=== PATIENT | female | born 1980 | race Two or more races ===

== ENCOUNTER 2020-06-06 01:27 | Emergency (ER) | payer MEDICAID ==
[~2020-06-06] VITALS: Ht 157.5 cm; Wt 70.3 kg
[~2020-06-06 01:27] MED LIST: PRENATAL VITS
[2020-06-06 03:29] VITALS: BP 120/76
== END 2020-06-06 05:55 | disposition home or self-care (01) ==
LOC: ER 01:27
DX: J01.00 Acute maxillary sinusitis, unspecified (principal)
CPT/HCPCS: 71045

== ENCOUNTER 2020-06-13 07:02 | Emergency (ER) | payer MEDICAID ==
[~2020-06-13] VITALS: Ht 157.5 cm; Wt 70.3 kg
[2020-06-13 07:31] VITALS: BP 113/81
[2020-06-13 08:05] LABS: Basophils # (auto) 0 10 ^3/uL (0-0.2); Eosinophils # (auto) 0 10 ^3/uL (0-0.8); Hemoglobin 10.1 g/dL (12.2-16.2); Mean Corpuscular Volume 68.8 fL (80.0-100.0); Monocytes # (auto) 0.3 10 ^3/uL (0-1.3); Red Cell Distribution Width 19.5 % (11.8-14.3)
[2020-06-13 08:09] LABS: Basophils % (auto) 0.2 % (0.0-2.0); Hematocrit 32.2 % (36.0-46.0); Lymphocytes # (auto) 1.2 10 ^3/uL (0.4-5.4); Lymphocytes % (auto) 17.9 % (10.0-50.0); Mean Corpuscular Hemoglobin 21.6 pg (28.0-32.0); Mean Corpuscular Hgb Conc. 31.4 g/dL (32.0-36.0); Monocytes % (auto) 4.2 % (0.0-12.0); Neutrophils # (auto) 5.2 10 ^3/uL (1.6-8.6); Neutrophils % (auto) 77.7 % (37.0-80.0); Platelet Count (auto) 331 10^3/uL (140-450); Red Blood Cells 4.69 10^6/uL (4.0-5.20); White Blood Cell 6.7 10^3/uL (4.4-10.8)
[2020-06-13 08:23] LABS: Albumin 3.5 g/dL (3.4-5.0); Calcium 8.2 mg/dL (8.5-10.1); Potassium 4.1 mmol/L (3.5-5.1)
[2020-06-13 08:26] LABS: BUN/Creatinine Ratio 17.1; Bilirubin, Total 0.3 mg/dL (0.2-1.0); CRP High Sensitivity 0.03 mg/dL (< 0.3); Total Protein 7.5 g/dL (6.4-8.2)
== END 2020-06-13 09:32 | disposition home or self-care (01) ==
LOC: ER 07:02
DX: U07.1 COVID-19 (principal); R19.7 Diarrhea, unspecified
CPT/HCPCS: 36415; 71045; 80053; 82728; 83615; 85025; 85379; 86141

== ENCOUNTER 2020-06-17 13:59 | Emergency (ER) | payer MEDICAID ==
[~2020-06-17] VITALS: Ht 157.5 cm; Wt 70.3 kg
[2020-06-17 14:23] VITALS: BP 119/77
== END 2020-06-17 16:38 | disposition home or self-care (01) ==
LOC: ER 13:59
DX: F41.9 Anxiety disorder, unspecified (principal); Z20.828 Contact with and (suspected) exposure to other viral communicable diseases
CPT/HCPCS: 71045